=== PATIENT | male | born 1975 | race Hispanic/Latino ===

== ENCOUNTER 2022-11-28 19:45 | Emergency (ER) | payer SELFPAY ==
[2022-11-28 20:10] VITALS: BP 152/84; PULSE 93; RESP 18; TEMP 36.9; O2SAT 97; BMI 32.0
--- NOTE | 2022-11-28 21:29 | ED_ITS ---
HPI - Wound/Laceration General Chief Complaint: Wound/Laceration Stated Complaint: cut mid.finger with knife Time Seen by Provider: 11/28/22 20:22 Source: patient Mode of arrival: Ambulatory History of Present Illness HPI narrative: 46-year-old male nonsmoker with noncontributory medical history presents with a chief complaint of an accidental laceration to the tip of his left middle finger with a sharp knife. He states he will need to have his tetanus updated. He wrapped his finger prior to coming but states that it was bleeding a fair amount. It has since stopped. Related Data Previous Rx's Medication Instructions Recorded cephalexin 500 mg capsule 500 mg PO Q6H 7 days #28 caps 11/28/22 Allergies Allergy/AdvReac Type Severity Reaction Status Date / Time No Known Drug Allergies Allergy Verified 11/28/22 20:09 Review of Systems Review of Systems Narrative: GENERAL: Denies chills, fatigue, malaise, fever, sweats. HEENT: Denies sinus pain, ear pain, sore throat, difficulty swallowing, dizziness. RESPIRATORY: Denies dyspnea, cough, wheezing, hemoptysis, sputum. CARDIOVASCULAR: Denies chest pain, palpitations, orthopnea, edema, GASTROINTESTINAL: Denies nausea, vomiting, abdominal pain, diarrhea, constipation, melena. : Denies dysuria, frequency, incontinence, hematuria, urinary retention. MUSCULOSKELETAL: See HPI SKIN: Denies rash, skin lesions, or other NEUROLOGIC: Denies weakness, headache, numbness, change in speech, confusion, seizures, incoordination. PSYCHIATRIC: No concerning psychosocial issues. 12 point review of systems is negative except for those stated above Patient History Social History Smoking Status: Never smoker Smoking Status: Never smoker alcohol intake frequency: a few times a week Substance Use Type: does not use Exam Narrative Exam Narrative: GEN: AOx3 and in mild distress EYES: Pupils are equal, round, and reactive to light and accommodation. Extraoccular muscles are intact bilaterally. There is no subconjunctival hemorrhage or exudate. CHEST: Lungs are clear to auscultation bilaterally and free of wheezes, rales, or rhonchi. Heart rate is regular rhythm, there are no murmurs, clicks, rubs, or gallops. There is no chest wall tenderness. ABD: Abdomen is soft and nontender. There is no guarding or rebound. Bowel sounds are normal in all 4 quadrants. There is no mass or organomegaly. EXT: Full painless ROM of all extremities with no loss of sensation or strength. SKIN: Small 1.5 cm crescent shaped flap laceration to the tip of left middle fi nger with active bleeding, no nail, nail bed or nail fold involvement, no foreign body, no bony exposure Warm, pink, and dry. No erythema or rash Initial Vital Signs Initial Vital Signs: Vital Signs Temperature 98.4 F 11/28/22 20:10 Pulse Rate 93 H 11/28/22 20:10 Respiratory Rate 18 11/28/22 20:10 Blood Pressure 152/84 H 11/28/22 20:10 Pulse Oximetry 97 11/28/22 20:10 Oxygen Delivery Method Room Air 11/28/22 20:10 Procedures Laceration Repair Laceration 1: Site: hand Side (If applicable): left Size (cm): 1.5 Description: flap Depth: simple, single layer Pre-repair: wound explored and cleansed with chlorhexadine Skin layer closed with: nylon Skin layer suture size: 4-0 Number of sutures: 4 Technique: simple, interrupted Nerve Block Nerve Block 1: Time out performed: Yes Side: left Nerve Blocks: digital Procedure Successful: Yes Patient Tolerated Procedure: Well Complications: none Course Orders Ordered: Discontinued Medications Bacitracin (Bacitracin 28 Gm Oint) 1 applic TOP NOW ONE Stop: 11/28/22 23:01 Last Admin: 11/28/22 23:27 Dose: Not Given Documented By: MARYELLEN Diphtheria/Tetanus/Acell Pertussis (Tet,Diph,Pertuss(Acell),Vac/Pf 0.5 Ml Syringe) 0.5 ml IM .ONCE ONE Stop: 11/28/22 20:15 Last Admin: 11/28/22 23:27 Dose: 0.5 ml Documented By: MARYELLEN Vital Signs Vital signs: Vital Signs - 8 hr 11/28/22 20:10 11/28/22 23:33 Temperature 98.4 F 98.4 F Pulse Rate 93 H 85 Respiratory Rate 18 16 Blood Pressure 152/84 H Pulse Oximetry 97 100 Oxygen Delivery Method Room Air Room Air Discharge Plan Departure Patient Disposition: Home Clinical Impression: Laceration Instructions: DI for Laceration Repair Activity Restrictions/Additional Instructions: Please keep the wound clean and dry to the best of your ability. Please monitor for signs of infection such as redness to the skin or increasing pain. Have the sutures/champ removed by your doctor in about 7 days. If you are unable to get into your doctor, we would be happy to remove the sutures/champ in that same timeframe. Prescriptions: New cephalexin 500 mg capsule 500 mg PO Q6H 7 Days Qty: 28 0RF Stand Alone Forms: Patient Portal/API
[2022-11-28] MEDS: TET,DIPH,PERTUSS(ACELL),VAC/PF 0.5 ML SYRINGE IM (23:27)
[2022-11-28 23:33] VITALS: PULSE 85; RESP 16; TEMP 36.9; O2SAT 100
== END 2022-11-28 23:34 | disposition home or self-care (01) ==
PROVIDERS: Emergency Provider Emergency Medicine
DX: S61.213A Laceration without foreign body of left middle finger without damage to nail, initial encounter (principal); W26.0XXA Contact with knife, initial encounter; Z23 Encounter for immunization
CPT/HCPCS: 12001; 90471; 99283; 90715